=== PATIENT | male | born 1955 | race Caucasian/White ===

== ENCOUNTER 2023-12-13 09:39 | Emergency (ER) | payer OTHER, SELFPAY ==
[2023-12-13] VITALS (49 sets, daily range): BP systolic 137–190; BP diastolic 72–101; PULSE 61–81; RESP 12–30; TEMP 36.6–36.8; O2SAT 95–99
--- NOTE | 2023-12-13 09:30 | RT.EKG_ITS ---
APPROVED REPORT Exam: Resting ECG Reason for Exam: dehydration Patient Location: E HR:75 bpm ECG Measurements Heart Rate 75 AXIS [place] 142 P 78 QRSd 88 QRS 54 QT 395 T 41 QTc 437 Conclusion Sinus rhythm. 75 normal axis no stemi
[2023-12-13] MEDS: Normal Saline 1,000 ML 1000 ML IV (10:08)
[2023-12-13 10:10] LABS: Abs Immature Grans 0.02 10^3/uL (0.0-0.06); Absolute Basophil Count 0.02 10^3/uL (0.0-0.2); Absolute Eosinophil Count 0.14 10^3/uL (0.0-0.7); Absolute Lymphocyte Count 0.98 10^3/uL (1.2-3.4); Absolute Monocyte Count 0.49 10^3/uL (0.1-0.8); Absolute Neutrophil Count 2.46 10^3/uL (1.2-6.7); Basophils % 0.5 %; Eosinophils % 3.4 %; HGB 13.3 g/dL (13.5-17.5); Immature Grans % 0.5 %; Lymphocytes % 23.8 %; MCH 26.7 pg (27.0-33.0); MCHC 32.4 % (32.0-36.0); MCV 82 fL (80-95); MPV 11.1 fL (8.0-11.0); Monocytes % 11.9 %; Neutrophils % 59.9 %; Platelet Count 169 10^3/uL (130-400); RBC 4.99 10^6/uL (4.36-5.78); RDW 13.4 % (11.8-14.1); RDW-SD 39.8 fL; WBC 4.11 10^3/uL (4.4-10.8)
[2023-12-13 10:27] LABS: ALT 34 U/L (16-63); AST 15 U/L (15-37); Albumin 3.9 g/dL (3.4-5.0); Alkaline Phosphatase 67 U/L (46-116); Anion Gap 9.8 mmol/L (3-11); BUN 20 mg/dL (7-18); Bilirubin, Total 0.47 mg/dL (0.2-1.0); CO2 26.2 mmol/L (21.0-32.0); CREATININE 1.2 mg/dL (0.70-1.30); Calcium 9.3 mg/dL (8.5-10.1); Chloride 101 mmol/L (98-107); Creatine Kinase 186 U/L (39-308); Estimated GFR 65.87 (mL/min/1.73m2); Glucose 98 mg/dL (74-106); Magnesium 1.9 mg/dL (1.8-2.4); Sodium 137 mmol/L (136-145); Total Protein 7.7 g/dL (6.4-8.2); Troponin I < 50 ng/L (< or =60)
[2023-12-13] MEDS: amLODIPine 5 MG TAB 10 MG PO (11:00)
[2023-12-13 13:39] LABS: Troponin I < 50 ng/L (< or =60)
--- NOTE | 2023-12-13 15:31 | ED.GENADUL_ITS ---
Discharge Plan Disposition Patient Disposition: Home Condition: Stable Discharge Details Clinical Impression: Weakness Primary Care Provider: Unknown,Unknown ED Provider: Jada Martin Home Meds and New Rx's Prescriptions: No Action amlodipine 5 mg tablet 5 mg PO DAILY lisinopril 20 mg tablet 20 mg PO DAILY atorvastatin 40 mg tablet 40 mg PO DAILY Discharge Instructions Instructions: Fatigue Additional Instructions: KEEP LOG OF BLOOD PRESSURES AND FOLLOW UP WITH PCP TO MAKE ANY ADJUSTMENTS TO YOUR MEDICINES DRINK LOTS OF WATER HPI General Date/Time Provider Initiated Documentation: 12/13/23 09:46 . Limitations to Documentation: no limitations . Information obtained by: patient . HPI Narrative: 68-year-old gentleman with past medical history of hypertension presents via ambulance for evaluation of lightheadedness. Reports onset of symptoms today. He is also felt clammy and a little dizzy, has not had any nausea or vomiting. Denies any chest pain or shortness of breath. He states that he has had symptoms like this in the past and is always felt better after IV fluids. He states his blood pressure has been all over the place, running high and low. He states that has been compliant with his medication. He takes his medication at nighttime. Reports that he has a ride to [place] at 3:00 and he really loves to have his workup completed by then. Related Data Home Medications Medication Instructions Recorded Confirmed amlodipine 5 mg tablet 5 mg PO DAILY 12/13/23 12/13/23 atorvastatin 40 mg tablet 40 mg PO DAILY 12/13/23 12/13/23 lisinopril 20 mg tablet 20 mg PO DAILY 12/13/23 12/13/23 Allergies Allergy/AdvReac Type Severity Reaction Status Date / Time codeine Allergy Hives Verified 12/13/23 09:50 General Stated Complaint: Dizzy/Sync KEYANA: 3 Exam Narrative Exam Narrative: Review of Systems: All systems reviewed & are unremarkable except as noted in HPI and below Well-developed, no acute distress NCAT PERRL, normal conjunctiva RRR, no murmur, hypertensive Unlabored respiratory effort, CTAB Nondistended abdomen , soft non tender Extremities w/o deformity, no cyanosis, no edema No rashes or lesions. no focal neurologic deficits Appropriate mood and affect Course Vital Signs Vital signs: Vital Signs Pulse 81 12/13/23 09:40 Respiratory Rate 13 12/13/23 09:40 Blood Pressure 190/93 H 12/13/23 09:40 Pulse Oximetry 98 12/13/23 09:40 Temperature 36.8 C 12/13/23 14:12 Temperature Source Tympanic 12/13/23 09:47 Pulse 66 12/13/23 14:01 Pulse 67 12/13/23 14:01 Respiratory Rate 15 12/13/23 14:01 Respiratory Effort Normal 12/13/23 09:44 Respiratory Depth Normal 12/13/23 10:46 Respiratory Pattern Normal 12/13/23 09:44 Blood Pressure 167/83 H 12/13/23 14:01 Blood Pressure Mean 113 12/13/23 14:01 Blood Pressure Position Sitting 12/13/23 09:40 Pulse Oximetry 97 12/13/23 14:01 Oxygen Delivery Method Room Air 12/13/23 09:40 Oxygen Flow Rate 0 12/13/23 09:40 Pain Level 0 12/13/23 14:12 Lab/Test Results Lab/Test Results: Laboratory Tests Range/Units 12/13/23 12/13/23 12/13/23 10:06 10:06 10:06 WBC (4.4-10.8) 10^3/uL 4.11 L RBC (4.36-5.78) 10^6/uL 4.99 Hgb (13.5-17.5) g/dL 13.3 L Hct (40.0-50.0) % 41.0 MCV (80-95) fL 82 MCH (27.0-33.0) pg 26.7 L MCHC (32.0-36.0) % 32.4 RDW (11.8-14.1) % 13.4 Plt Count (130-400) 10^3/uL 169 MPV (8.0-11.0) fL 11.1 H Immature Gran % % 0.5 Neutrophils % % 59.9 Lymphocytes % % 23.8 Monocytes % % 11.9 Eosinophils % % 3.4 Basophils % % 0.5 Nucleated RBC % (0.0-0.3) % 0.0 Absolute Neutrophils (1.2-6.7) 10^3/uL 2.46 Absolute Lymphocytes (1.2-3.4) 10^3/uL 0.98 L Absolute Monocytes (0.1-0.8) 10^3/uL 0.49 Absolute Eosinophils (0.0-0.7) 10^3/uL 0.14 Absolute Basophils (0.0-0.2) 10^3/uL 0.02 Sodium (136-145) mmol/L 137 Potassium (3.5-5.1) mmol/L 4.0 Chloride (98-107) mmol/L 101 Carbon Dioxide (21.0-32.0) mmol/L 26.2 Anion Gap (3-11) mmol/L 9.8 BUN (7-18) mg/dL 20 H Creatinine (0.70-1.30) mg/dL 1.2 Est GFR (CKD-EPI 2020) (mL/min/1.73m2) 65.87 Glucose (74-106) mg/dL 98 Calcium (8.5-10.1) mg/dL 9.3 Magnesium (1.8-2.4) mg/dL 1.9 Total Bilirubin (0.2-1.0) mg/dL 0.47 AST (15-37) U/L 15 ALT (16-63) U/L 34 Alkaline Phosphatase (46-116) U/L 67 Creatine Kinase Cancelled 186 Troponin I Cancelled < 50 Total Protein (6.4-8.2) g/dL 7.7 Albumin (3.4-5.0) g/dL 3.9 Range/Units 12/13/23 13:07 WBC (4.4-10.8) 10^3/uL RBC (4.36-5.78) 10^6/uL Hgb (13.5-17.5) g/dL Hct (40.0-50.0) % MCV (80-95) fL MCH (27.0-33.0) pg MCHC (32.0-36.0) % RDW (11.8-14.1) % Plt Count (130-400) 10^3/uL MPV (8.0-11.0) fL Immature Gran % % Neutrophils % % Lymphocytes % % Monocytes % % Eosinophils % % Basophils % % Nucleated RBC % (0.0-0.3) % Absolute Neutrophils (1.2-6.7) 10^3/uL Absolute Lymphocytes (1.2-3.4) 10^3/uL Absolute Monocytes (0.1-0.8) 10^3/uL Absolute Eosinophils (0.0-0.7) 10^3/uL Absolute Basophils (0.0-0.2) 10^3/uL Sodium (136-145) mmol/L Potassium (3.5-5.1) mmol/L Chloride (98-107) mmol/L Carbon Dioxide (21.0-32.0) mmol/L Anion Gap (3-11) mmol/L BUN (7-18) mg/dL Creatinine (0.70-1.30) mg/dL Est GFR (CKD-EPI 2020) (mL/min/1.73m2) Glucose (74-106) mg/dL Calcium (8.5-10.1) mg/dL Magnesium (1.8-2.4) mg/dL Total Bilirubin (0.2-1.0) mg/dL AST (15-37) U/L ALT (16-63) U/L Alkaline Phosphatase (46-116) U/L Creatine Kinase Troponin I < 50 Total Protein (6.4-8.2) g/dL Albumin (3.4-5.0) g/dL Medical Decision Making Emergent evaluation of lightheadedness. Initial differential includes presyncope, vasovagal episode, dehydration, electrolyte derangement. Patient does not have any acute concerning changes on his EKG. He is not having any chest pain or other symptoms concerning for ACS. However this clamminess and lightheadedness could be an anginal equivalent. Plan for cardiac monitoring, lab work including serial troponins. Will give patient IV fluids as he is concern for some dehydration. Patient monitored in the emergency department, no dysrhythmias noted. Lab work reviewed, no anemia, electrolytes are not deranged. Serial troponins negative. His CPK is not elevated so I do not suspect rhabdo. A an additional dose of the patient's blood pressure medication was given in the emergency department. And after IV fluids, he felt much better. I will not change his blood pressure dosing as he is reporting some pretty significant variations at home. Advised him to keep a blood pressure log and have him present this log to his PCP for management of his medications as needed. Medical Records Medical records reviewed: Yes I reviewed the patient's medical records. Lab Data Lab results reviewed: Yes I reviewed the patient's lab results. Quality:SDOH Health Related Social Needs: No Data to Display PFSH All Active Problems Weakness (Acute) Social History Smoking/Tobacco Use Status: Never Smoking risk assessment performed?: Yes Alcohol Intake: current Alcohol Intake frequency: a few times a month Drug use: Never Substance use type: does not use PAWSS Have you Been Recently Intoxicated or Drunk Within the Last 30 days?: No Have you Ever Experienced Previous Episodes of Alcohol Withdrawal?: No Have you ever Experienced Withdrawal Seizures?: No Have you ever Experienced Delirium Tremens(DT)s?: No Have you ever undergone Alcohol Rehabilitation Treatment (i.e, inpt ot outpatient treatment programs)?: No Have you ever Experienced Blackouts?: No Have you ever Combined Alcohol with other Downers within the last 90 days?: No Have you ever Combined Alcohol with any other Substance of Abuse during the last 90 days?: No Positive Blood Alcohol level on Presentation? [PCS.BAL]: No Evidence of Increased Autonomic Activity (i.e. HR>120, tremor, sweating, agitation, nausea)?: No Result: 0
== END 2023-12-13 14:12 | disposition home or self-care (01) ==
PROVIDERS: Emergency Provider Emergency Medicine
DX: R11.0 Nausea (principal); R53.1 Weakness; I10 Essential (primary) hypertension
CPT/HCPCS: 36415; 80053; 82550; 93005; 96360; 99284; 83735; 84484; 85025; 93010; 99283